=== PATIENT | male | born 1965 ===

== ENCOUNTER 2016-11-17 12:13 | Emergency (ER) | payer BC ==
[~2016-11-17] VITALS: Ht 167.6 cm; Wt 74.5 kg
[2016-11-17 12:32] VITALS: TEMP 36.7; Ht 167.6 cm; Wt 74.5 kg
--- NOTE | 2016-11-17 12:34 | EMERGENCY ROOM VISIT NOTE ---
History Report prepared by [place]: China Layton Under the Supervision of: Dr. Pranav Gannon M.D. First contact with patient: 12:18 Stated Complaint: ABD PAIN/SOB History of Present Illness The patient is a 50 year old male who presents to the Emergency Room with complaints of persistent shortness of breath that began prior to arrival. Per the patient's nephew, the patient is currently visiting the area for the [employer]. He states that for the past week the patient has had a persistent wet cough. He had a clear chest x-ray on Sunday. The patient's nephew reports that yesterday the patient walked and played golf. He states that last evening the patient did not get much sleep. The patient's nephew reports that today the patient was walking the golf course again and began complaining of shortness of breath and he was coughing. He reports that EMS was called for the patient. The patient's nephew states that the patient is not typically very active and feels that his symptoms are related to exhaustion and dehydration. He states that the patient ate breakfast this morning. The patient's nephew denies the patient having any history of lung or heart diseases. Source of History: patient, family (nephew) Onset: prior to arrival Position: other (global) Quality: other (shortness of breath) Timing: other (persistent) Associated Symptoms: + cough Review of Systems See HPI for pertinent positives & negatives. A total of 10 systems reviewed and were otherwise negative. Past Medical & Surgical Medical Problems: (1) Mental retardation Family History No pertinent family history stated. Social History Housing Status: lives with family Current/Historical Medications Unable to Obtain Active Prescriptions or Reported Meds Physical Exam Vital Signs Date Time Temp Pulse Resp B/P (MAP) Pulse Ox O2 Delivery O2 Flow Rate FiO2 11/17/16 12:42 91 20 129/82 98 11/17/16 12:32 36.7 103 17 171/92 97 Room Air 11/17/16 12:26 99 Room Air Physical Exam GENERAL: Patient is in no acute distress. HEENT: No acute trauma, normocephalic atraumatic, mucous membranes moist, no nasal congestion, no scleral icterus. NECK: No stridor, no adenopathy, no meningismus, trachea is midline. LUNGS: Clear to auscultation bilaterally, no wheeze, no rhonchi, breath sounds equal. HEART: Mildly tachycardic with a regular rhythm, no murmurs. ABDOMEN: Soft, nontender, bowel sounds positive, no hernias, no peritonitis. EXTREMITIES: No cyanosis or edema, full range of motion of all the joints without pain or difficulty, no signs for acute trauma. NEUROLOGIC: Mild MR noted, moving all extremities equally, no focal motor deficits. SKIN: No rash, no jaundice, no diaphoresis. Medical Decision & Procedures ECG Indication: SOB/dyspnea Rate (beats per minute): 104 Rhythm: sinus tachycardia Findings: no acute ischemic change, no ectopy ED Course 1219: The patient was evaluated in room B12B. A complete history and physical exam was performed. 1229: I spoke to the patient's sister on the phone who is also the patient's caregiver. She agrees that the best plan of action is to let the patient rest. I discussed the exam findings with the patient and his nephew and I discussed the treatment plan. He verbalized complete understanding and agreement. He is ready to go home shortly. Medical Decision The patient is a 50 year old male who presents to the ED with complaints of shortness of breath. Differential diagnoses considered include exhaustion, pneumonia or bronchitis, cardiac ischemia, dysrhythmia, anemia, electrolyte imbalance, HI. The patient presents with an episode of shortness of breath. He was out on the [place]. He has had some issues with cough lately. He is not very active and [place] [employer] [place]. He has done more exercise in the last 2 days than he has in a long time. His nephew is at the bedside and believes the patient just overdid it today. The patient's EKG is without evidence for acute HI, a very mild sinus tachycardia was noted. His lungs are clear. He is not febrile, he is not toxic. He is not hypoxic. I spoke to the nephew, I talked to the patient's sister who is his primary caregiver. No further testing is to be done. They feel the patient just needs some rest and hydration. They have agreed to bring him back here if things do worsen. They were happy to hear that the EKG was normal and that the lungs were clear. Blood Pressure Screening: Patient was found to have an elevated blood pressure and was referred to their primary doctor for recheck and further treatment. Medication Reconciliation: I attest that I have personally reviewed the patient' s current medication list. Impression Primary Impression: Shortness of breath Scribe Attestation The scribe's documentation has been prepared under my direction and personally reviewed by me in its entirety. I confirm that the note above accurately reflects all work, treatment, procedures, and medical decision making performed by me. Departure Information Dispostion Home / Self-Care Prescriptions Unable to Obtain Active Prescriptions or Reported Meds Referrals No Doctor, Assigned (PCP) Forms HOME CARE DOCUMENTATION FORM, IMPORTANT VISIT INFORMATION Patient Instructions My [facility] Additional Instructions lungs were clear today ECG was normal hydrate and rest today return for worsening symptoms as we discussed
[2016-11-17 12:42] VITALS: BP 129/82; PULSE 91; O2SAT 98
== END 2016-11-17 12:43 | disposition home or self-care (01) ==
LOC: C.EDB 12:15
DX: R06.02 Shortness of breath (principal); R05 Cough; F70 Mild intellectual disabilities; R00.0 Tachycardia, unspecified